=== PATIENT | female | born 1965 | race Caucasian/White ===

== ENCOUNTER → 2024-01-12 | Outpatient (CLI) | payer OTHER, SELFPAY ==
--- NOTE | 2024-01-12 11:49 | US_ITS ---
HISTORY: UTI. TECHNIQUE: Day scale and color doppler images were obtained of the kidneys. 68 images. COMPARISON: None. FINDINGS: RIGHT KIDNEY: 11.5 cm in length with a cortical thickness of 1.5 cm. Contour and echogenicity unremarkable. No hydronephrosis. No gross renal mass demonstrated. LEFT KIDNEY: 12.1 cm in length with a cortical thickness of 1.9 cm. Contour and echogenicity unremarkable. No hydronephrosis. No gross renal mass demonstrated. URINARY BLADDER: Unremarkable at 316 cc with a 3 mm wall thickness. Bilateral ureteral jets visualized. US/Kidney and Bladder IMPRESSION: Unremarkable examination of the kidneys. Electronically Signed: Deepthi Wharton MD at 10:45 EDT ,
== END | disposition home or self-care (01) ==
PROVIDERS: PCP Nurse Practitioner Adult Health; Referring Provider Urology; Visit Provider Urology
DX: N39.0 Urinary tract infection, site not specified (principal)
CPT/HCPCS: 76770

== ENCOUNTER → 2024-04-26 | Outpatient (CLI) | payer OTHER, SELFPAY ==
--- NOTE | 2024-04-26 07:43 | ART_ITS ---
Reason For Study: PVD Procedure A bilateral lower extremity continuous wave Doppler with analog waveform analysis and ankle brachial indexes. Left Segmental Pressures Left brachial= 144mmHg. Left posterior tibial artery = 193mmHg. Left dorsalis pedis artery = 176mmHg. The left posterior tibial artery waveforms are triphasic. The left dorsalis pedis waveforms are triphasic. Right Segmental Pressures Right brachial= 134mmHg. Right posterior tibial artery = 177mmHg. Right dorsalis pedis artery = 175mmHg. The right posterior tibial artery waveforms are triphasic. The right dorsalis pedis waveforms are triphasic. Indices The right ankle brachial index by the posterior tibial artery is 1.23. The right ankle brachial index by the dorsalis pedis is 1.22. The left ankle brachial index by the posterior tibial artery is 1.34. The left ankle brachial index by the dorsalis pedis is 1.22. VL/Ankle Brachial Index Interpretation Summary Right BETH 1.23, normal. Doppler/PVR waveforms of the right ankle normal at rest . Left BETH 1.34, normal. Doppler/PVR waveforms of the left ankle normal at rest. Ordering Physician: Ivonne Fischer Referring Physician: IVONNE FISCHER DOCTOR OF [employer]ICINE Performed By: Freddie Snider RVT and Student
--- NOTE | 2024-04-26 07:43 | CDU_ITS ---
Reason For Study: PVD Rt. Velocities/BP Lt. Velocities/BP Prox CCA 89.1/20.4 cm/sec. Prox CCA 86.4/28.1 cm/sec. Mid CCA 62.1/22.8 cm/sec. Mid CCA 76.5/27.0 cm/sec. Dist CCA 63.4/20.4 cm/sec. Dist CCA 72.1/27.0 cm/sec. Prox ICA 52.5/15.7 cm/sec. Prox ICA 42.1/16.6 cm/sec. Mid ICA 68.6/27.0 cm/sec. Mid ICA 71.4/28.0 cm/sec. Dist ICA 74.3/27.0 cm/sec. Dist ICA 84.2/35.8 cm/sec. Rt. ICA/CCA = 1.2. Lt. ICA/CCA = 1.1. Prox ECA 92.4/10.2 cm/sec. Prox ECA 102.7/19.2 cm/sec. Rt. Vert. 48.1/14.7 cm/sec. Lt. Vert. 46.7/11.8 cm/sec. Right Extracranial There is intimal thickening but no significant atherosclerotic plaque noted in the right common carotid artery. There is intimal thickening but no significant atherosclerotic plaque noted in the right internal carotid artery. There is intimal thickening but no significant atherosclerotic plaque noted in the right external carotid artery. Antegrade flow is noted in the right vertebral artery. Left Extracranial There is intimal thickening but no significant atherosclerotic plaque noted in the left common carotid artery. There is intimal thickening but no significant atherosclerotic plaque noted in the left internal carotid artery. There is intimal thickening but no significant atherosclerotic plaque noted in the left external carotid artery. Antegrade flow is noted in the left vertebral artery. Procedure Carotid Duplex 21549. This is a Carotid Duplex examination using B-mode, color flow and specral Doppler. The exam was diagnostic. Exam performed in department. VL/Carotid Duplex Ultrasound Interpretation Summary Normal right extracranial internal carotid. Normal left extracranial internal carotid. Patent and antegrade vertebrals bilaterally. Ordering Physician: Ivonne Orozco Referring Physician: Ivonne Orozco Performed By: Freddie Snider RVT and Student
== END | disposition home or self-care (01) ==
PROVIDERS: PCP Nurse Practitioner Adult Health; Referring Provider Nurse Practitioner Adult Health; Visit Provider Nurse Practitioner Adult Health
DX: I73.9 Peripheral vascular disease, unspecified (principal); R09.89 Other specified symptoms and signs involving the circulatory and respiratory systems; R29.90 Unspecified symptoms and signs involving the nervous system
CPT/HCPCS: 93880; 93922

== ENCOUNTER → 2024-08-15 | Outpatient (CLI) | payer OTHER, SELFPAY ==
--- NOTE | 2024-08-15 14:22 | RAD_ITS ---
INDICATION: NECK PAIN EXAMINATION/TECHNIQUE: X-RAY - XR Spine Cervical 4 or 5 Views COMPARISON: No relevant prior comparison study available FINDINGS: VERTEBRAE: Preserved vertebral body height. No fracture. Mild retrolisthesis of C5 over C6. Preservation of the normal cervical lordosis. No significant facet arthropathy. DISCS: Narrowing of C5-C6 disc space. Small posterior lateral degenerative spurs. No visible critical stenosis. NECK SOFT TISSUES: No prevertebral soft tissue widening. LUNG APICES: Clear. RAD/Cerv Spine 4 or 5 Views IMPRESSION: Degenerative changes at the level of C5-C6 as described above.. Electronically Signed: Juan Antonio Miranda MD at 13:53 EDT ,
--- NOTE | 2024-08-15 14:22 | RAD_ITS ---
INDICATION: LOW BACK PAIN EXAMINATION/TECHNIQUE: X-RAY - XR Spine Lumbar 2 or 3 Views COMPARISON: No relevant prior comparison study available FINDINGS: VERTEBRAE: Preserved vertebral body height. No fracture. Minimal retrolisthesis of L2 over L3. Preservation of the normal lumbar lordosis. Mild dextroscoliosis could be positional. DISCS: Narrowing of L3-L4 and L4-L5 disc spaces. Facet arthropathy of the lower lumbar spine. INCLUDED ABDOMEN: Included bowel gas pattern is non-obstructive. RAD/Lumbar Spine 2 or 3 Views IMPRESSION: Degenerative changes of the lumbar spine as described above. Electronically Signed: Juan Antonio Miranda MD at 13:51 EDT ,
--- NOTE | 2024-08-15 14:22 | RAD_ITS ---
INDICATION: SCIATICA EXAMINATION/TECHNIQUE: X-RAY - XR Spine Thoracic 2 Views COMPARISON: No relevant prior comparison study available FINDINGS: VERTEBRAE: Preserved vertebral body height. No fracture. No spondylolisthesis. Mild increased thoracic kyphosis. No substantial scoliosis. DISCS: Mild narrowing of mid thoracic disc spaces. Endplate spondylosis.. INCLUDED CHEST/ABDOMEN: No acute abnormalities. RAD/Thoracic Spine 2 Views IMPRESSION: Mild degenerative changes. Electronically Signed: Juan Antonio Miranda MD at 13:56 EDT ,
== END | disposition home or self-care (01) ==
PROVIDERS: PCP Nurse Practitioner Adult Health; Referring Provider Nurse Practitioner Adult Health; Visit Provider Nurse Practitioner Adult Health
DX: M54.2 Cervicalgia (principal); M54.41 Lumbago with sciatica, right side; M54.42 Lumbago with sciatica, left side; G89.29 Other chronic pain
CPT/HCPCS: 72050; 72070; 72100